=== PATIENT | male | born 1930 | race Caucasian/White ===

== ENCOUNTER 2016-11-22 23:32 | Observation (INO) | payer BC, MEDICARE ==
[~2016-11-22] VITALS: Ht 172.7 cm; Wt 89.8 kg
[2016-11-22 23:45] VITALS: BP 163/84; PULSE 86; RESP 20; TEMP 98.1; O2SAT 93
[2016-11-23] VITALS (9 sets, daily range): BP systolic 129–161; BP diastolic 67–81; PULSE 78–105; RESP 18–20; TEMP 95.8–97.6; O2SAT 92–97
[2016-11-23] MEDS ORDERED: HYDR12.56 PO (00:02)
[2016-11-23] MEDS ORDERED: LOSA100T PO (00:02)
[2016-11-23] MEDS ORDERED: METO25TA3 PO (00:02)
[2016-11-23] MEDS ORDERED: CLOP75TA PO (00:02)
[2016-11-23] MEDS ORDERED: ROPI0.5T PO (00:02)
[2016-11-23] MEDS ORDERED: ASPI1TAB69 PO (00:02)
[2016-11-23] MEDS ORDERED: VITA100064 PO (00:02)
[2016-11-23] MEDS ORDERED: AMLO10TA2 PO (00:02)
[2016-11-23] MEDS ORDERED: MULT1TAB84 PO (00:02)
[2016-11-23] MEDS ORDERED: ATOR20TA15 PO (00:02)
[2016-11-23] MEDS ORDERED: COEN1CAP PO (00:02)
[2016-11-23] MEDS ORDERED: LYRI75CA PO (00:02)
[2016-11-23 00:21] LABS: AUTOMATED NEUTROPHIL # 5.6 TH/MM3 (1.8-7.7); BASOPHIL # 0.1 TH/MM3 (0-0.2); BASOPHIL % 0.4 % (0.0-2.0); EOSINOPHIL # 0.5 TH/MM3 (0-0.4); EOSINOPHIL % 2.3 % (0.0-4.0); HEMATOCRIT 39.2 % (39.0-51.0); LYMPH % 67.9 % (9.0-44.0); LYMPHOCYTE # 14.5 TH/MM3 (1.0-4.8); MEAN CELL VOLUME 87.9 FL (80.0-100.0); MEAN CORPUSCULAR HGB CONC 31.9 % (32.0-36.0); NEUT % 26.4 % (16.0-70.0); PLATELET COUNT 216 TH/MM3 (150-450); RED BLOOD COUNT 4.46 MIL/MM3 (4.50-5.90); RED CELL DISTRIBUTION WIDTH 13.1 % (11.6-17.2); WHITE BLOOD COUNT 21.3 TH/MM3 (4.0-11.0)
[2016-11-23 00:27] LABS: CHLORIDE 103 MEQ/L (98-107); POTASSIUM 3.8 MEQ/L (3.5-5.1); SODIUM (NA) 138 MEQ/L (136-145)
[2016-11-23 00:30] LABS: ANION GAP 6 MEQ/L (5-15); BICARBONATE 29.1 MEQ/L (21.0-32.0); BLOOD UREA NITROGEN 25 MG/DL (7-18); MAGNESIUM 1.8 MG/DL (1.5-2.5)
[2016-11-23 00:33] LABS: APTT (PATIENT) 26.4 SEC (24.3-30.1); HEMO FLAGS AUTO DIFF; PROTHROMBIN TIME - PATIENT 10.7 SEC (9.8-11.6)
--- NOTE | 2016-11-23 00:33 | RADHPO ---
EXAM DATE/TIME: 11/23/2016 00:00 [facility] COMPARISON: No previous studies available for comparison. INDICATIONS : Shortness of breath starting tonight MEDICAL HISTORY : None. SURGICAL HISTORY : Stent placement ENCOUNTER: Initial ACUITY: 1 day PAIN SCORE: 0/10 LOCATION: Bilateral chest FINDINGS: 2 AP erect portable views of the chest were obtained and demonstrates the lungs to be symmetrically a erated without evidence of mass, infiltrate or effusion. The cardiomediastinal contours are unremark able. Osseous structures are intact. CONCLUSION: No acute disease. Teodoro Aden MD on November 23, 2016 at 0:31 Board Certified Radiologist. This report was verified electronically.
[2016-11-23 00:34] LABS: GLOMERULAR FILTRATION RATE 29 ML/MIN (>89)
[2016-11-23 00:37] LABS: CREATINE KINASE 144 U/L (39-308)
--- NOTE | 2016-11-23 00:40 | PD ---
HPI Chief Complaint: Respiratory Symptoms Time Seen by Provider: 23:39 Travel History International Travel<30 days: No Contact w/Intl Traveler<30days: No Traveled to known affect area: No History of Present Illness HPI 86-year-old male arrives with shortness of breath. The patient was in bed and became dyspneic. EMS was called. En route the patient received Solu-Medrol and 2 breathing treatments, which were very helpful. He has no chest pain. He has no fever or cough. He denies a diagnosis of COPD or CHF. Pt travelled from [place] last few days by car taking frequent brakes. He notes bilateral lower extremity swelling is new for him and noticed its greater on L. PFSH Past Medical History Hx Anticoagulant Therapy: Yes AAA: Yes Cardiac Catheterization: Yes (x2) Cardiovascular Problems: Yes High Cholesterol: Yes COPD: Yes Diminished Hearing: Yes Hiatal Hernia: Yes (bilateral) Medical other: Yes (restless leg syndrome) Respiratory: Yes Myocardial Infarction: Yes Tetanus Vaccination: < 5 Years Influenza Vaccination: Yes Past Surgical History Coronary Stent: Yes ([address] pollack) Tonsillectomy: Yes Social History Alcohol Use: No Tobacco Use: No Substance Use: No Allergies-Medications (Allergen,Severity, Reaction): Coded Allergies: Brilinta (Verified Allergy, Intermediate, Rash, 11/22/16) Ultram (Verified Allergy, Intermediate, Rash, 11/22/16) Zocor (Verified Allergy, Intermediate, Rash, 11/22/16) Reported Meds & Prescriptions Reported Meds & Active Scripts Active Reported Co Q-10 (Coenzyme Q10 (Ubidecarenone)) 100 Mg Cap 100 Mg PO DAILY Lyrica (Pregabalin) 75 Mg Cap 75 Mg PO BID Ropinirole 0.5 Mg Tab 0.5 Mg PO HS Amlodipine (Amlodipine Besylate) 10 Mg Tab 10 Mg PO DAILY Atorvastatin (Atorvastatin Calcium) 20 Mg Tab 20 Mg PO HS Metoprolol Tartrate 25 Mg Tab 12.5 Mg PO BID Clopidogrel (Clopidogrel Bisulfate) 75 Mg Tab 75 Mg PO DAILY Hydrochlorothiazide 12.5 Mg Tab 12.5 Mg PO DAILY Losartan (Losartan Potassium) 100 Mg Tab 100 Mg PO DAILY Aspirin 81 Mg Tabdr 81 Mg PO DAILY Vitamin D (Cholecalciferol) 1,000 Unit Tab 1,000 Units PO DAILY Multivitamin Adults (Multiple Vitamins W/ Minerals) 1 Tab 1 Tab PO DAILY Review of Systems Except as stated in HPI: all other systems reviewed are Neg General / Constitutional: No: Fever Cardiovascular: No: Chest Pain or Discomfort Respiratory: Positive: Shortness of Breath, Wheezing, No: Cough Physical Exam Narrative GENERAL: 86 yo M, WNWD SKIN: Warm and dry. HEAD: Atraumatic. Normocephalic. EYES: Pupils equal and round. No scleral icterus. No injection or drainage. ENT: No nasal bleeding or discharge. Mucous membranes pink and moist. NECK: Trachea midline. No JVD. CARDIOVASCULAR: Regular rate and rhythm. RESPIRATORY: Wheezing present inspiration/expiration. No accessory muscle use. GASTROINTESTINAL: Abdomen soft, non-tender, nondistended. Hepatic and splenic margins not palpable. MUSCULOSKELETAL: Extremities without clubbing, cyanosis, or edema. No obvious deformities. NEUROLOGICAL: Awake and alert. No obvious cranial nerve deficits. Motor grossly within normal limits. Five out of 5 muscle strength in the arms and legs. Normal speech. PSYCHIATRIC: Appropriate mood and affect; insight and judgment normal. Data Data Last Documented VS Vital Signs Date Time Temp Pulse Resp B/P Pulse Ox O2 Delivery O2 Flow Rate FiO2 11/23/16 00:50 78 18 144/81 94 Nasal Cannula 2 11/22/16 23:45 98.1 VS reviewed Orders Complete Blood Count With Diff (11/22/16 23:49) Basic Metabolic Panel (Bmp) (11/22/16 23:49) B-Type Natriuretic Peptide (11/22/16 23:49) Act Partial Throm Time (Ptt) (11/22/16 23:49) Prothrombin Time / Inr (Pt) (11/22/16 23:49) Magnesium (Mg) (11/22/16 23:49) Ckmb (Isoenzyme) Profile (11/22/16 23:49) Troponin I (11/22/16 23:49) Iv Access Insert/Monitor (11/22/16 23:49) Electrocardiogram (11/22/16 23:49) Ecg Monitoring (11/22/16 23:49) Oximetry (11/22/16 23:49) Oxygen Administration (11/22/16 23:49) Chest, Single Ap (11/22/16 23:49) Us Leg Venous Doppler Bilat (11/22/16 ) CKMB (11/23/16 00:09) CKMB% (11/23/16 00:09) Albuterol-Ipratropium Neb (Duoneb Neb) (11/23/16 01:45) Admit Order (Ed Use Only) (11/23/16 01:44) Labs Laboratory Tests Test 11/23/16 00:09 White Blood Count 21.3 TH/MM3 Red Blood Count 4.46 MIL/MM3 Hemoglobin 12.5 GM/DL Hematocrit 39.2 % Mean Corpuscular Volume 87.9 FL Mean Corpuscular Hemoglobin 28.0 PG Mean Corpuscular Hemoglobin 31.9 % Concent Red Cell Distribution Width 13.1 % Platelet Count 216 TH/MM3 Mean Platelet Volume 7.5 FL Neutrophils (%) (Auto) 26.4 % Lymphocytes (%) (Auto) 67.9 % Monocytes (%) (Auto) 3.0 % Eosinophils (%) (Auto) 2.3 % Basophils (%) (Auto) 0.4 % Neutrophils # (Auto) 5.6 TH/MM3 Lymphocytes # (Auto) 14.5 TH/MM3 Monocytes # (Auto) 0.6 TH/MM3 Eosinophils # (Auto) 0.5 TH/MM3 Basophils # (Auto) 0.1 TH/MM3 CBC Comment AUTO DIFF Differential Total Cells 100 Counted Neutrophils % (Manual) 28 % Lymphocytes % 66 % Monocytes % 4 % Eosinophils % 2 % Neutrophils # (Manual) 6.0 TH/MM3 Differential Comment FINAL DIFF MANUAL Smudge Cells PRESENT Platelet Estimate NORMAL Platelet Morphology Comment NORMAL Red Cell Morphology Comment NORMAL Prothrombin Time 10.7 SEC Prothromb Time International 1.0 RATIO Ratio Activated Partial 26.4 SEC Thromboplast Time Sodium Level 138 MEQ/L Potassium Level 3.8 MEQ/L Chloride Level 103 MEQ/L Carbon Dioxide Level 29.1 MEQ/L Anion Gap 6 MEQ/L Blood Urea Nitrogen 25 MG/DL Creatinine 2.20 MG/DL Estimat Glomerular Filtration 29 ML/MIN Rate Random Glucose 140 MG/DL Calcium Level 8.9 MG/DL Magnesium Level 1.8 MG/DL Total Creatine Kinase 144 U/L Creatine Kinase MB 3.9 NG/ML Troponin I LESS THAN 0.02 NG/ML B-Type Natriuretic Peptide 48 PG/ML MDM Medical Decision Making Medical Screen Exam Complete: Yes Emergency Medical Condition: Yes Differential Diagnosis NSTEMI, unstable angina, coronary vasospasm, PE, PTX, aortic dissection, pericarditis, myocarditis, endocarditis, PNA, esophageal disease, aneurysm, musculoskeletal etiologies, anxiety, cocaine/sympathomimetic abuse Narrative Course EKG reveals a sinus rhythm with a rate of 77 normal axis and intervals Last 24 hours Impressions Chest X-Ray 11/22/16 2349 Signed Impressions: Service Date/Time: November 00:00 - CONCLUSION: No acute disease. Teodoro Aden MD Lower Extremity Ultrasound 11/22/16 0000 Signed Impressions: Service Date/Time: November 00:49 - CONCLUSION: Negative exam with no evidence of deep venous thrombosis. Teodoro Aden MD CBC & BMP Diagram 11/23/16 00:09 BNP 48 Renal insufficiency essentially stable compared to bloodwork from last week. Oxygen discontinued upon reassessment at 145AM and O2 sat decreased to 89% with good waveform. Persistent wheezing present. Pt to be admitted for COPD exacerbation. 2 add'l Dulorri ordered. d/w Dr Turcios. Diagnosis Primary Impression: COPD exacerbation Additional Impression: Hypoxia Admitting Information Admitting Physician Requests: Chico Rodriguez MD November 23, 2016 00:40
[2016-11-23 00:49] LABS: CKMB 3.9 NG/ML (0.5-3.6)
[2016-11-23 00:53] LABS: EOSINOPHILS 2 % (0-4); PLATELET ESTIMATE SMEAR NORMAL (NORMAL); PLATELET MORPHOLOGY NORMAL (NORMAL); POLYS (SEG NEUTROPHILS) 28 % (16-70); SCAN/DIFF FINAL DIFF MANUAL; SMUDGE CELLS PRESENT PRESENT; WBC DIFF SAMPLE 100
--- NOTE | 2016-11-23 01:14 | RADHPO ---
EXAM DATE/TIME: 11/23/2016 00:49 [facility] COMPARISON: No previous studies available for comparison. INDICATIONS : Shortness of breath. MEDICAL HISTORY : Hypercholesterolemia. Aneurysm, abdominal. Myocardial infarction. COPD. Hiatel hernia. SURGICAL HISTORY : Tonsillectomy. Cardiac stents. Left knee surgery. ENCOUNTER: Initial ACUITY: 1 day PAIN SCORE: 0/10 LOCATION: Bilateral leg. TECHNIQUE: Venous ultrasound of the left and right leg was performed from the inguinal ligament to the proximal calf. Real-time, color Doppler and spectral tracing, compression and augmentation techniques were us ed. FINDINGS: RIGHT LEG: There is normal compressibility of the deep venous system from the inguinal region to the proximal ca lf. No echogenic clot is seen in the lumen of the common femoral, femoral, popliteal, and posterior tibial veins. There is a normal response of the venous system to proximal and distal augmentation an d respiration. LEFT LEG: There is normal compressibility of the deep venous system from the inguinal region to the proximal ca lf. No echogenic clot is seen in the lumen of the common femoral, femoral, popliteal, and posterior tibial veins. There is a normal response of the venous system to proximal and distal augmentation an d respiration. CONCLUSION: Negative exam with no evidence of deep venous thrombosis. Teodoro Aden MD on November 23, 2016 at 1:12 Board Certified Radiologist. This report was verified electronically.
[2016-11-23] MEDS ORDERED: SODIUM CHLORIDE 0.9% FLUSH 10 ML FLUSH IV FLUSH PRN (01:45)
[2016-11-23] MEDS ORDERED: NALOXONE HCL 0.4 MG/ML AMP IV PRN (01:45)
[2016-11-23] MEDS: RESP: ALBUTEROL 2.5 MG/IPRATROPIUM 0.5 MG NEB (SCH) INH ×2 (01:55→01:56)
[2016-11-23] MEDS ORDERED: RESP: ALBUTEROL 2.5 MG/IPRATROPIUM 0.5 MG NEB (PRN) NEB (02:00)
[2016-11-23] MEDS: RESP: ALBUTEROL 2.5 MG/IPRATROPIUM 0.5 MG NEB (SCH) NEB ×2 (03:20→10:17)
[2016-11-23] MEDS ORDERED: SODIUM CHLORIDE 0.9% FLUSH 10 ML FLUSH IV FLUSH SCH (09:00)
[2016-11-23] MEDS ORDERED: VENTAER INH (12:23)
--- NOTE | 2016-11-23 13:46 | EKG ---
Date Performed: 11/23/2016 Time Performed: 00:06:08 PTAGE: 86 years EKG: Sinus rhythm Possible inferior infarct - age undetermined Abnormal ECG NO PREVIOUS TRACING DOCTOR: Melo Nettles Interpretating Date/Time 11/23/2016 13:42:27
--- NOTE | 2016-11-23 13:57 | HHI.HP ---
[facility]Staff Admission Diagnosis COPD Exacerbation, Hypoxia Diagnoses: (1) COPD exacerbation (2) CAD (coronary artery disease) (3) CLL (chronic lymphocytic leukemia) (4) Reactive airway disease (5) CKD (chronic kidney disease) (6) Old [place] (myocardial infarction) Travel History International Travel<30 Days: No Contact w/Intl Traveler <30 Da: No Traveled to Known Affected Are: No History of Present Illness Mr. Moulton is an 86-year-old male. He is brought here last night after waking up with severe shortness of breath. At that time he was presumed and treated for a COPD exacerbation. Overnight he has full resolution of his symptoms. He did have lasagna within 2 hours prior to bed and his etiology may also be reactive airway disease secondary to gastroesophageal reflux. At baseline he has CLL, coronary artery disease, COPD, chronic kidney disease. He has a history of a heart stent. Other than a heart catheter he has had bilateral hernia repairs and a tracheostomy as a child. He has a history of smoking but is not currently smoking. When I see him today he is returned to baseline request discharge. The quick resolution of his symptoms suggest reactive airway disease rather than a classic COPD exacerbation. He is medically stable for discharge today. Review of Systems Constitutional: DENIES: Fever, Chills Eyes: DENIES: Blurred vision, Diplopia Ears, nose, mouth, throat: DENIES: Hearing loss, Vertigo Respiratory: COMPLAINS OF: Shortness of breath, DENIES: Cough, Wheezing Cardiovascular: DENIES: Chest pain, Palpitations, Syncope Gastrointestinal: DENIES: Abdominal pain, Black stools, Bloody stools Musculoskeletal: DENIES: Joint pain, Muscle aches Integumentary: DENIES: Abnormal pigmentation Hematologic/lymphatic: DENIES: Bruising Immunologic/allergic: DENIES: Eczema Neurologic: DENIES: Abnormal gait Psychiatric: DENIES: Anxiety Past Family Social History Past Medical History COPD Coronary artery disease CLL Old [place] Past Surgical History Bilateral inguinal hernia repair Tracheostomy Heart catheterization Reported Medications Reported Meds & Active Scripts Active Ventolin Hfa 18 GM Inh (Albuterol Sulfate) 90 Mcg/Act Aer 1 Puff INH Q4H PRN Reported Co Q-10 (Coenzyme Q10 (Ubidecarenone)) 100 Mg Cap 100 Mg PO DAILY Lyrica (Pregabalin) 75 Mg Cap 75 Mg PO BID Ropinirole 0.5 Mg Tab 0.5 Mg PO HS Amlodipine (Amlodipine Besylate) 10 Mg Tab 10 Mg PO DAILY Atorvastatin (Atorvastatin Calcium) 20 Mg Tab 20 Mg PO HS Metoprolol Tartrate 25 Mg Tab 12.5 Mg PO BID Clopidogrel (Clopidogrel Bisulfate) 75 Mg Tab 75 Mg PO DAILY Hydrochlorothiazide 12.5 Mg Tab 12.5 Mg PO DAILY Losartan (Losartan Potassium) 100 Mg Tab 100 Mg PO DAILY Aspirin 81 Mg Tabdr 81 Mg PO DAILY Vitamin D (Cholecalciferol) 1,000 Unit Tab 1,000 Units PO DAILY Multivitamin Adults (Multiple Vitamins W/ Minerals) 1 Tab 1 Tab PO DAILY Allergies: Coded Allergies: Brilinta (Verified Allergy, Intermediate, Rash, 11/22/16) Ultram (Verified Allergy, Intermediate, Rash, 11/22/16) Zocor (Verified Allergy, Intermediate, Rash, 11/22/16) Family History [place] in father and brother Social History History of smoking Currently no smoking alcohol or drug use. Physical Exam Vital Signs Vital Signs Date Time Temp Pulse Resp B/P Pulse Ox O2 Delivery O2 Flow Rate FiO2 11/23/16 12:27 95.8 105 18 161/77 96 11/23/16 10:32 96 21 11/23/16 08:45 96.9 104 18 153/76 95 11/23/16 04:00 97.4 93 20 135/68 97 11/23/16 02:51 79 20 129/67 94 Nasal Cannula 2 11/23/16 02:50 Nasal Cannula 2.00 11/23/16 02:45 97.6 91 20 151/75 92 11/23/16 01:54 92 Nasal Cannula 2.00 11/23/16 01:50 84 20 142/67 94 Nasal Cannula 2 11/23/16 00:50 78 18 144/81 94 Nasal Cannula 2 11/23/16 00:03 93 Nasal Cannula 11/23/16 00:03 93 Nasal Cannula 2 11/23/16 00:03 Nasal Cannula 11/22/16 23:45 98.1 86 20 163/84 93 Physical Exam GENERAL: NAD, A&Ox3 SKIN: Warm and dry. HEAD: Normocephalic. EYES: No scleral icterus. No injection or drainage. NECK: Supple, trachea midline. No JVD or lymphadenopathy. CARDIOVASCULAR: Regular rate and rhythm without murmurs, gallops, or rubs. RESPIRATORY: Breath sounds equal bilaterally. No accessory muscle use. GASTROINTESTINAL: Abdomen soft, non-tender, nondistended. MUSCULOSKELETAL: No cyanosis, or edema. Laboratory Laboratory Tests Test 11/23/16 00:09 White Blood Count 21.3 Red Blood Count 4.46 Hemoglobin 12.5 Hematocrit 39.2 Mean Corpuscular Volume 87.9 Mean Corpuscular Hemoglobin 28.0 Mean Corpuscular Hemoglobin 31.9 Concent Red Cell Distribution Width 13.1 Platelet Count 216 Mean Platelet Volume 7.5 Neutrophils (%) (Auto) 26.4 Lymphocytes (%) (Auto) 67.9 Monocytes (%) (Auto) 3.0 Eosinophils (%) (Auto) 2.3 Basophils (%) (Auto) 0.4 Neutrophils # (Auto) 5.6 Lymphocytes # (Auto) 14.5 Monocytes # (Auto) 0.6 Eosinophils # (Auto) 0.5 Basophils # (Auto) 0.1 CBC Comment AUTO DIFF Differential Total Cells 100 Counted Neutrophils % (Manual) 28 Lymphocytes % 66 Monocytes % 4 Eosinophils % 2 Neutrophils # (Manual) 6.0 Differential Comment FINAL DIFF MANUAL Smudge Cells PRESENT Platelet Estimate NORMAL Platelet Morphology Comment NORMAL Red Cell Morphology Comment NORMAL Prothrombin Time 10.7 Prothromb Time International 1.0 Ratio Activated Partial 26.4 Thromboplast Time Sodium Level 138 Potassium Level 3.8 Chloride Level 103 Carbon Dioxide Level 29.1 Anion Gap 6 Blood Urea Nitrogen 25 Creatinine 2.20 Estimat Glomerular Filtration 29 Rate Random Glucose 140 Calcium Level 8.9 Magnesium Level 1.8 Total Creatine Kinase 144 Creatine Kinase MB 3.9 Troponin I LESS THAN 0.02 B-Type Natriuretic Peptide 48 Result Diagram: 11/23/16 0009 11/23/16 0009 Imaging Last Impressions Chest X-Ray 11/22/16 2349 Signed Impressions: Service Date/Time: November 00:00 - CONCLUSION: No acute disease. Teodoro Aden MD Lower Extremity Ultrasound 11/22/16 0000 Signed Impressions: Service Date/Time: November 00:49 - CONCLUSION: Negative exam with no evidence of deep venous thrombosis. Teodoro Aden MD Assessment and Plan Problem List: (1) Old [place] (myocardial infarction) ICD Code: I25.2 Status: Acute (2) CKD (chronic kidney disease) ICD Code: N18.9 Status: Acute (3) Reactive airway disease ICD Code: J45.909 Status: Acute (4) CLL (chronic lymphocytic leukemia) ICD Code: C91.10 Status: Acute (5) CAD (coronary artery disease) ICD Code: I25.10 Status: Acute (6) COPD exacerbation ICD Code: J44.1 Status: Acute Assessment and Plan COPD exacerbation versus reactive airway disease Resolution with treatment overnight Resume home treatments Add prn albuterol Discharged home. Old [place] CAD CLL These conditions are chronic and at baseline Continue to monitor as an outpatient DISCHARGE DISPOSITION: Home in stable condition. ACTIVITY: Regular. Avoid heavy lifting or bending. DIET: Regular diet MEDICATIONS: Resume home medications. FOLLOW-UP: PCP Dr. Villanueva one week Chico Finney MD November 23, 2016 13:57
== END 2016-11-23 13:25 | disposition home or self-care (01) ==
LOC: PHED 23:32 → INTOOBSV 11-23 01:46 → PHEDA 11-23 01:46 → PH3A 11-23 02:37
PROVIDERS: ADMIT Hospitalist; ATTEND Hospitalist
DX: J44.1 Chronic obstructive pulmonary disease with (acute) exacerbation (principal); I25.10 Atherosclerotic heart disease of native coronary artery without angina pectoris; C91.10 Chronic lymphocytic leukemia of B-cell type not having achieved remission; I25.2 Old myocardial infarction; E78.00 Pure hypercholesterolemia, unspecified; N18.9 Chronic kidney disease, unspecified; G25.81 Restless legs syndrome; Z79.02 Long term (current) use of antithrombotics/antiplatelets; Z79.82 Long term (current) use of aspirin; Z88.6 Allergy status to analgesic agent; Z88.8 Allergy status to other drugs, medicaments and biological substances; Z87.891 Personal history of nicotine dependence; Z95.5 Presence of coronary angioplasty implant and graft
CPT/HCPCS: 71010; 80048; 82550; 82552; 83735; 83880; 84484; 85007; 85027; 85610; 85730; 93005; 93970; 94640; 94664; 97162; 99285; G0378; G8987; G8988